=== PATIENT | female | born 1980 | race African-American/Black ===

== ENCOUNTER 2018-06-10 13:31 | Emergency (ER) | payer OTHER, MEDICAID ==
[~2018-06-10] VITALS: Ht 154.9 cm; Wt 72.1 kg
[~2018-06-10 13:31] MED LIST: ACCUNEB1.25 MG/3; ADVAIR 100-501 EACH INH; ADVAIR 250-501 EACH INH; ADVAIR 500-501 EACH; ADVAIR 500-501 EACH IH; ADVAIR 500-501 EACH INH; ADVAIR HFA 230M12 GM INH; ADVAIR HFA115 MCG/21 INH; ALBUTEROL INH; ALBUTEROL INHAL17 GM IH; ALBUTEROL NEB; ALBUTEROL2.5 MG/0.5; ALBUTEROL2.5 MG/0.5 INH; ALBUTEROL2.5 MG/31 INH; ALBUTEROL2.5 MG/32; ATIVAN0.5 MG PO; ATIVAN1 MG PO; AUGMENTIN 875-1 EACH PO; AZITHROMYCIN 2250 MG PO; CELEXA20 MG PO; CLARITIN10 M2; CLARITIN10 MG PO; COMBIVENT INH; CYCLOBENZAPRINE5 MG PO; DELTASONE20 MG PO; DOXYCYCLINE 10100 MG PO; DUONEB 2.5-0.5 M3 ML INH; FIORICET 50-321 EACH; FLONASE 0.05%50 MCG NASAL; HYDROCODON-ACE1 EAC7 PO; KEFLEX500 MG PO; LORATIDINE 10 M10 M1 PO; LORAZEPAM 22 MG/1 ML; MEDROL DOSPAK21 TAB PO; MEDROLDOSEPACK PO; NORCO 5-325 TA1 EACH PO; PHENERGAN-CODE120 ML PO; PHENTERMINE H37.5 MG; PREDNISONE 10 M10 MG PO; PREDNISONE 20 M20 M1 PO; PREDNISONE 20 M20 MG PO; PREDNISONE50 MG PO; PROAIR HFA8.5 GM IH; PROAIR HFA8.5 GM PO; PROMETHAZINE-D120 ML PO; PROVENTIL HFA6.7 G1 INH; PROVENTIL IH; PROVENTIL INH; SINGULAIR 10 MG10 M1 PO; STERAPRED DS10 MG PO; ULTRACET TABLE1 EACH PO; VENTOLIN HFA 1818 GM; VENTOLIN HFA 1818 GM INH; VENTOLIN17 GM INH; VIBRAMYCIN 100100 M2; VIOS AEROSOL D1 EACH; XANAX 0.25 MG0.25 MG PO; ZANTAC 150MG T150 M1 PO; ZPAK PO; ZYRTEC10 M2 PO
[2018-06-10] MEDS ORDERED: ATIVAN0.5 MG PO (13:49)
[2018-06-10 14:49] LABS: ABSOLUTE BASOPHILS 0.1 thou/uL (0.0-0.2); ABSOLUTE EOSINOPHILS 0.4 thou/uL (0.0-0.7); ABSOLUTE LYMPHOCYTES 2.2 thou/uL (0.8-5.3); ABSOLUTE MONOCYTES 0.3 thou/uL (0.0-1.2); ABSOLUTE NEUTROPHILS 8.9 thou/uL (1.6-8.1); BASOPHILS 0.6 %; HEMATOCRIT 35.8 % (37.0-47.0); HEMOGLOBIN 10.7 gm/dL (12.0-15.0); LYMPHOCYTES 18.8 %; MCH 23.8 pg (26.0-34.0); MCHC 29.9 g/dL (28.0-37.0); MCV 79.5 fL (80.0-100.0); MONOCYTES 2.7 %; MPV 8.1 fl. (7.2-11.1); NUCLEATED RBCS 0 /100WBC; PLATELET COUNT* 378 thou/uL (150-400); POLYS 74.9 %; RDW-CV 16.3 % (10.5-14.5); WBC 11.9 thou/uL (4.0-11.0)
[2018-06-10] MEDS ORDERED: PREDNISONE 20 M20 M1 PO (15:26)
[2018-06-10] MEDS ORDERED: IPRAT-ALBUT 0.5-3 ML INH (15:26)
[2018-06-10 15:37] VITALS: BP 118/88
[2018-06-10 18:14] LABS: CALCIUM 8.7 mg/dL (8.5-10.1); CREATININE 0.8 mg/dL (0.6-1.3); POTASSIUM 4.7 mmol/L (3.5-5.1)
[2018-06-10 18:19] LABS: ALBUMIN 3.4 g/dL (3.4-5.0); TOTAL BILIRUBIN 0.5 mg/dL (<0.1-1.0); TOTAL PROTEIN 7.3 g/dL (6.4-8.2)
== END 2018-06-10 15:38 | disposition home or self-care (01) ==
LOC: M.ERS 13:31
PROVIDERS: Nurse Practitioner Family
DX: J45.901 Unspecified asthma with (acute) exacerbation (principal); F41.9 Anxiety disorder, unspecified; Z88.8 Allergy status to other drugs, medicaments and biological substances

== ENCOUNTER 2019-02-25 13:44 | Emergency (ER) | payer OTHER, MEDICAID ==
[~2019-02-25] VITALS: Ht 154.9 cm; Wt 74.8 kg
[~2019-02-25 13:44] MED LIST changes: +IPRAT-ALBUT 0.5-3 ML INH
[2019-02-25] MEDS ORDERED: VENTOLIN HFA 1818 GM INH (15:34)
[2019-02-25] MEDS ORDERED: MEDROLDOSEPACK PO (15:34)
[2019-02-25] MEDS ORDERED: PREDNISONE 10 M10 MG PO (15:45)
[2019-02-25 15:47] VITALS: BP 129/59
== END 2019-02-25 15:47 | disposition home or self-care (01) ==
LOC: M.ERS 13:44
DX: J45.901 Unspecified asthma with (acute) exacerbation (principal); F41.9 Anxiety disorder, unspecified; Z88.8 Allergy status to other drugs, medicaments and biological substances

== ENCOUNTER 2019-03-19 09:09 | Emergency (ER) | payer OTHER, MEDICAID ==
[~2019-03-19] VITALS: Ht 154.9 cm; Wt 77.1 kg
[2019-03-19 09:37] LABS: ABSOLUTE BASOPHILS 0.1 thou/uL (0.0-0.2); ABSOLUTE EOSINOPHILS 0.5 thou/uL (0.0-0.7); ABSOLUTE LYMPHOCYTES 2.1 thou/uL (0.8-5.3); ABSOLUTE MONOCYTES 0.5 thou/uL (0.0-1.2); ABSOLUTE NEUTROPHILS 4.2 thou/uL (1.6-8.1); EOSINOPHILS 6.4 %; HEMATOCRIT 40.3 % (37.0-47.0); HEMOGLOBIN 12.5 gm/dL (12.0-15.0); LYMPHOCYTES 28.9 %; MCH 26.9 pg (26.0-34.0); MCHC 31.1 g/dL (28.0-37.0); MCV 86.6 fL (80.0-100.0); MONOCYTES 6.3 %; MPV 7.5 fl. (7.2-11.1); NUCLEATED RBCS 0 /100WBC; PLATELET COUNT* 372 thou/uL (150-400); POLYS 57.4 %; RBC 4.65 mil/uL (4.20-5.00); WBC 7.3 thou/uL (4.0-11.0)
[2019-03-19 09:47] LABS: ANION GAP 7 mmol/L (7-16); APTT 24.5 Seconds (25.0-31.3); BUN 15 mg/dL (7-18); CALCIUM 8.6 mg/dL (8.5-10.1); CHLORIDE 102 mmol/L (98-107); CO2 31 mmol/L (21-32); CREATININE 0.8 mg/dL (0.6-1.3); GLUCOSE 144 mg/dL (70-99); POTASSIUM 3.4 mmol/L (3.5-5.1); PROTIME 9.8 Seconds (9.20-11.50); SODIUM 140 mmol/L (136-145)
[2019-03-19 09:58] LABS: ALBUMIN 3.4 g/dL (3.4-5.0); ALKALINE PHOSPHATASE 59 U/L (46-116); NT-PRO BRAIN NAT PEPTIDE 6 pg/mL (<300); SGOT 17 U/L (15-37); SGPT 22 U/L (30-65); TOTAL BILIRUBIN 0.4 mg/dL (<0.1-1.0); TOTAL PROTEIN 7.4 g/dL (6.4-8.2); TROPONIN-I LEVEL <0.06 ng/mL (<0.06)
[2019-03-19] MEDS ORDERED: MEDROLDOSEPACK PO (12:05)
[2019-03-19] MEDS ORDERED: PREDNISONE10 MG PO (12:36)
[2019-03-19 12:40] VITALS: BP 134/84
== END 2019-03-19 12:40 | disposition home or self-care (01) ==
LOC: M.ERS 09:09
PROVIDERS: Emergency Medicine
DX: J45.901 Unspecified asthma with (acute) exacerbation (principal); F41.9 Anxiety disorder, unspecified; Z88.8 Allergy status to other drugs, medicaments and biological substances

== ENCOUNTER 2020-03-01 16:16 | Emergency (ER) | payer OTHER, MEDICAID ==
[~2020-03-01] VITALS: Ht 154.9 cm; Wt 79.4 kg
[~2020-03-01 16:16] MED LIST changes: +PREDNISONE10 MG PO
[2020-03-01] MEDS ORDERED: PROAIR HFA8.5 GM INH (17:06)
[2020-03-01] MEDS ORDERED: ADVAIR 500-501 EACH INH (17:06)
[2020-03-01] MEDS ORDERED: PREDNISONE50 MG PO (17:09)
[2020-03-01 17:23] VITALS: BP 130/73
== END 2020-03-01 17:24 | disposition home or self-care (01) ==
LOC: M.ERS 16:16
DX: J45.901 Unspecified asthma with (acute) exacerbation (principal); Z88.8 Allergy status to other drugs, medicaments and biological substances

== ENCOUNTER 2020-04-03 14:39 | Emergency (ER) | payer OTHER, MEDICAID ==
[~2020-04-03] VITALS: Ht 154.9 cm; Wt 79.4 kg
[~2020-04-03 14:39] MED LIST changes: +PROAIR HFA8.5 GM INH
[2020-04-03 14:47] VITALS: BP 150/93
[2020-04-03] MEDS ORDERED: VENTOLIN HFA 1818 GM INH (14:57)
[2020-04-03] MEDS ORDERED: PREDNISONE 20 M20 M1 PO (14:57)
== END 2020-04-03 15:14 | disposition home or self-care (01) ==
LOC: M.ERS 14:39
DX: J45.901 Unspecified asthma with (acute) exacerbation (principal); Z88.8 Allergy status to other drugs, medicaments and biological substances

== ENCOUNTER 2021-02-18 17:11 | Emergency (ER) | payer OTHER, MEDICAID ==
[~2021-02-18] VITALS: Ht 162.6 cm; Wt 81.7 kg
[2021-02-18] MEDS ORDERED: PREDNISONE 20 M20 M1 PO (18:32)
[2021-02-18 19:07] VITALS: BP 132/75
== END 2021-02-18 19:08 | disposition home or self-care (01) ==
LOC: M.ERS 17:11
DX: J45.901 Unspecified asthma with (acute) exacerbation (principal); Z88.8 Allergy status to other drugs, medicaments and biological substances